=== PATIENT | female | born 1965 | race Hispanic/Latino ===

== ENCOUNTER → 2022-08-28 | Day surgery (SDC) | payer OTHER ==
[~2022-08-28] MED LIST: ATACAND HCT 161 EACH PO; FAMOTIDINE20 MG PO; FLONASE ALLERG9.9 ML INH; HYOSCYAMINE SULFATE 0.5 MG/ML INJ ONE; MAGNESIUM OXID400 MG PO; MONTELUKAST SOD10 MG PO; NEOMYCIN-POLYMY10 ML RIGHT EAR; OMEPRAZOLE40 MG PO
[2022-08-28 15:40] VITALS: BP 110/75
== END | disposition home or self-care (01) ==
LOC: OR 12:27
PROVIDERS: ATTEND Internal Medicine Gastroenterology
DX: Z12.11 Encounter for screening for malignant neoplasm of colon (principal); D12.4 Benign neoplasm of descending colon; R10.10 Upper abdominal pain, unspecified; Z71.3 Dietary counseling and surveillance; Z01.810 Encounter for preprocedural cardiovascular examination; Z68.27 Body mass index [BMI] 27.0-27.9, adult; Z80.0 Family history of malignant neoplasm of digestive organs
CPT/HCPCS: 45378; 45380; 93005; J1980

== ENCOUNTER → 2023-05-10 | Day surgery (SDC) | payer OTHER ==
[~2023-05-10] MED LIST changes: -HYOSCYAMINE SULFATE 0.5 MG/ML INJ ONE; +LACTATED RINGER'S 1,000 ML ONE; +PROPOFOL IV EMULSION 50 ML IV ONE; +SUGAMMADEX SODIUM 200 MG/2 ML VIAL IV ONE
[2023-05-10 07:53] VITALS: TEMP 97.3
[2023-05-10 08:10] VITALS: BP 112/68; PULSE 70; RESP 16; O2SAT 96
== END | disposition home or self-care (01) ==
LOC: OR 05:54
PROVIDERS: ATTEND Internal Medicine Gastroenterology
DX: K29.70 Gastritis, unspecified, without bleeding (principal); K31.7 Polyp of stomach and duodenum; K44.9 Diaphragmatic hernia without obstruction or gangrene; K21.9 Gastro-esophageal reflux disease without esophagitis; K59.09 Other constipation; Z71.3 Dietary counseling and surveillance; D64.9 Anemia, unspecified; I10 Essential (primary) hypertension; J30.2 Other seasonal allergic rhinitis; Z01.810 Encounter for preprocedural cardiovascular examination; Z79.899 Other long term (current) drug therapy; Z68.26 Body mass index [BMI] 26.0-26.9, adult; Z80.0 Family history of malignant neoplasm of digestive organs
CPT/HCPCS: 43239; 93005; C9113; J2704; J7121